=== PATIENT | male | born 1965 | race Caucasian/White ===

== ENCOUNTER 2018-08-25 16:43 | Emergency (ER) | payer SELFPAY ==
[2018-08-25] MEDS ORDERED: OXYCODONE-ACETAMINOPHEN 5-325 MG TABLET PO ONE (18:20)
[2018-08-25] MEDS ORDERED: DIAZEPAM INJ 10 MG/2 ML DISP.SYRIN IM ONE (18:20)
--- NOTE | 2018-08-25 18:23 | ER Document Report ---
HPI - HPI Time Seen by Provider: 08/25/18 17:57 Pain Level: 4 Notes: Patient is a 53-year-old male who presents the emergency department with chief complaint of left-sided back pain with radiation into his buttocks. He states that yesterday he was helping someone move when he moved wrong while lifting. He does have a history of back pain in the past and he also has a history of a left [id number] amputation. He denies loss of bowel or bladder, reports able to urinate without difficulty. - CONSTITUTIONAL Constitutional: DENIES: Fever, Chills - EENT EENT: DENIES: Sore Throat, Ear Pain, Eye problems - NEURO Neurology: DENIES: Headache, Weakness, Vision blurred, Dizzinesss / Vertigo - CARDIOVASCULAR Cardiovascular: DENIES: Chest pain - RESPIRATORY Respiratory: DENIES: Trouble Breathing, Coughing - GASTROINTESTINAL Gastrointestinal: DENIES: Abdominal Pain, Black / Bloody Stools - URINARY Urinary: DENIES: Dysuria, Urgency, Frequency - MUSCULOSKELETAL Musculoskeletal: REPORTS: Extremity pain - L leg Past Medical History - General Information source: Patient - Social History Smoking Status: Never Smoker Frequency of alcohol use: None Drug Abuse: None Lives with: Family Family History: Reviewed & Not Pertinent Patient has suicidal ideation: No Patient has homicidal ideation: No - Past Medical History Cardiac Medical History: Reports: Hx Hypercholesterolemia Renal/ Medical History: Denies: Hx Peritoneal Dialysis Traumatic Medical History: Reports: Hx Fractures Past Surgical History: Reports: Hx Orthopedic Surgery - Left [id number] amputation Vertical Provider Document - CONSTITUTIONAL Notes: PHYSICAL EXAMINATION: GENERAL: Well-appearing, well-nourished and in moderate distress. HEAD: Atraumatic, normocephalic. EYES: Pupils equal round extraocular movements intact, conjunctiva are normal. ENT: Nares patent NECK: Normal range of motion LUNGS: No respiratory distress Musculoskeletal: Significant tenderness to palpation to left paraspinous muscles in both the thoracic and lumbar region, spasms noted. NEUROLOGICAL: Normal speech. PSYCH: Normal mood, normal affect. SKIN: Warm, Dry, normal turgor, no rashes or lesions noted. - INFECTION CONTROL TRAVEL OUTSIDE OF THE [place] IN LAST 30 DAYS: No Course - Re-evaluation Re-evalutation: 08/25/18 18:21 Patient in moderate distress upon my initial evaluation. Patient's paraspinous muscles in the left lumbar and thoracic region are rigid and can be felt spasming. Paraspinous muscles on the right side appeared normal. Patient does have a history of back injuries in the past and is allergic to most muscle relaxers. He does state that he has been given Valium in the past. We will dose patient with 10 mg of IM Valium and reevaluate. Discussed case with attending physician Dr. Agrawal. Patient's pain down to 3/5 after administration of additional pain medications. Will DC patient home on short course of muscle relaxers and pain medication. - Vital Signs Vital signs: Temp Pulse Resp BP Pulse Ox 97.6 F 76 18 147/112 H 100 08/25/18 16:48 08/25/18 16:48 08/25/18 16:48 08/25/18 16:48 08/25/18 16:48 Discharge - Discharge Clinical Impression: Muscle spasm Lumbar strain Qualifiers: Encounter type: initial encounter Qualified Code(s): S39.012A - Strain of muscle, fascia and tendon of lower back, initial encounter Condition: Stable Disposition: HOME, SELF-CARE Additional Instructions: You were seen today for muscle spasms. I am prescribing you a short course of Valium and Percocet. I would advise you also take ibuprofen 600 mg every 6 hours this will help with the inflammation. We will be unable to re-prescribe these medications as we do not treat chronic pain so if you do have another flareup of the back pain you will need to see primary care. Return to the emergency department if you lose control of your bowels, you are unable to urinate or you have numbness or weakness in any of your extremities. Prescriptions: Diazepam [Valium 5 mg Tablet] 5 mg PO QIDP PRN #15 tablet PRN Reason: Oxycodone HCl/Acetaminophen [Percocet 5-325 mg Tablet] 1 tab PO Q4H PRN #15 tablet PRN Reason:
[2018-08-25] MEDS ORDERED: HYDROMORPHONE HCL INJ/PF 2 MG/ML AMPULE IM ONE (19:52)
[2018-08-25] MEDS ORDERED: DEXAMETHASONE SOD PHOS INJ 10 MG/1 ML VIAL IM ONE (19:53)
[2018-08-25 20:51] VITALS: BP 144/84
== END 2018-08-25 20:50 | disposition home or self-care (01) ==
LOC: ER 16:43
DX: S39.012A Strain of muscle, fascia and tendon of lower back, initial encounter (principal); M62.830 Muscle spasm of back; M79.605 Pain in left leg; X50.9XXA Other and unspecified overexertion or strenuous movements or postures, initial encounter; Y93.E6 Activity, residential relocation; Z89.612 Acquired absence of left leg above knee; Z88.8 Allergy status to other drugs, medicaments and biological substances
CPT/HCPCS: 99283; 96372; 96374; J3360; J1170; J1100